=== PATIENT | male | born 1960 | race Caucasian/White ===

== ENCOUNTER 2018-07-10 14:26 | Day surgery (SDC) | payer OTHER ==
[~2018-07-10] VITALS: Ht 175.3 cm; Wt 88.6 kg
[2018-07-10] VITALS (7 sets, daily range): BP systolic 137–157; BP diastolic 7–93; PULSE 64–76; TEMP 97.4–98.1
[2018-07-10] MEDS ORDERED: FLOMAX 0.40.4 MG/CAP PO (15:08)
[2018-07-10] MEDS ORDERED: NORCO 325 MG-51 TAB PO (15:08)
[2018-07-10] MEDS ORDERED: ALEVE 220MG220 MG PO (15:09)
[2018-07-10] MEDS ORDERED: SKELAXIN 800MG800 MG PO (15:10)
--- NOTE | 2018-07-10 15:45 | NUR ---
Patient reports pain is getting better/more tolerable after PRN IV pain medication administration.
--- NOTE | 2018-07-10 18:45 | NUR ---
Patient admitted for recovery after cystoscopy. Alert and oriented. Answers questions appropriately. Ambulates to bathroom and urinates with some burning during urination. No other c/o at this time.
--- NOTE | 2018-07-10 19:12 | NUR ---
Discharge instructions reviewed with patient and spouse, verbalized understanding. Discharged via wheelchair to auto/home with family at 1910.
== END 2018-07-10 19:10 | disposition home or self-care (01) ==
LOC: SDCO 14:26 → SURG 18:15 → SDCO 19:10
DX: N20.1 Calculus of ureter (principal); Z98.52 Vasectomy status; Z88.0 Allergy status to penicillin; Z88.1 Allergy status to other antibiotic agents; Z80.51 Family history of malignant neoplasm of kidney
CPT/HCPCS: OP; C1769; C2617; J0690; J1100; J1885; J2405; J2704; J2765; J3010; J7120; Q9967

== ENCOUNTER → 2020-08-28 | Outpatient (CLI) | payer OTHER ==
[~2020-08-28] MED LIST: ALEVE 220MG220 MG PO; FLOMAX 0.40.4 MG/CAP PO; NORCO 325 MG-51 TAB PO; SKELAXIN 800MG800 MG PO
== END ==
LOC: COL.RAD 09:22
DX: H93.12 Tinnitus, left ear (principal)
CPT/HCPCS: A9585